=== PATIENT | female | born 1965 | race Caucasian/White ===

== ENCOUNTER 2016-06-01 05:49 | Day surgery (SDC) | payer OTHER ==
[2016-05-28 09:27] LABS: HEMATOCRIT 35.6 % (36.0-48.0); HEMOGLOBIN 11.8 g/dL (12.0-16.0)
[2016-05-28 09:41] LABS: BUN (BLOOD UREA NITROGEN) 16 MG/DL (6-23); CALCIUM, SERUM 9.9 MG/DL (8.5-10.4); CHLORIDE, SERUM 108 MMOL/L (96-112); CO2 (CARBON DIOXIDE) 27 MMOL/L (24-34); CREATININE 0.61 MG/DL (0.55-1.02); GFR AFRICAN AMERICAN 122 ML/MIN (>=60); GFR NON AFRICAN AMERICAN 105 ML/MIN (>=60); GLUCOSE, SERUM 95 MG/DL (60-99); POTASSIUM, SERUM 4.5 MMOL/L (3.5-5.3); SODIUM, SERUM 143 MMOL/L (135-148)
[2016-05-31 13:14] LABS: MEAN CORPUSCULAR HEMOGLOB 29.9 pg (26.0-34.0); MEAN CORPUSCULAR VOLUME 91.5 fL (80-100); RED CELL COUNT 4.01 10/6/uL (4.0-5.6); WHITE BLOOD CELLS 4.4 10/3/uL (4.5-10.5)
[2016-05-31 13:15] LABS: BASOPHILS 0.7 %; BASOPHILS ABSOLUTE 0.03 10/3/uL (0.0-0.16); EOSINOPHILS 3.2 %; EOSINOPHILS ABSOLUTE 0.14 10/3/uL (0.0-0.53); IMMATURE GRANULOCYTES 1.1 %; IMMATURE GRANULOCYTES ABSOLUTE 0.05 10/3/uL (0.0-0.11); LYMPHOCYTES 42.3 %; LYMPHOCYTES ABSOLUTE 1.85 10/3/uL (0.67-4.30); MANUAL DIFF NO %; MEAN CORPUS HGB CONC 32.7 g/dL (32.0-36.0); MEAN PLATELET VOLUME 10.8 fL (9.2-13.0); MONOCYTES 8.7 %; MONOCYTES ABSOLUTE 0.38 10/3/uL (0.21-1.20); NEUTROPHILS ABSOLUTE 1.92 10/3/uL (2.02-8.40); PLATELET COUNT 211 10/3/uL (150-400); RBC DISTRIBUTION WIDTH 13.3 % (12.0-16.0)
--- NOTE | ~2016-06-01 | OP ---
Record Of Operation [facility] [address] [place]. [address] NAME: DESIRE KHAN : 65 STATUS : REG [facility] [place] PAT#: [id number] AGE: 51 ADM/REG DATE : 06/01/16 MR#: [id number] REPORT SERV DATE: 06/01/16 DICTATED BY: JOSE A TRUJILLO DATE: 06/01/16 REPORT STATUS : Draft TRANSCRIBED BY: MODL DATE: 06/01/16 DATE OF PROCEDURE: 06/01/2016 PREOPERATIVE DIAGNOSIS: Left superior parathyroid adenoma with hyperparathyroidism. POSTOPERATIVE DIAGNOSIS: Left superior parathyroid adenoma with hyperparathyroidism. PROCEDURE: Neck exploration with removal of a left superior parathyroid adenoma. SURGEON: Jose A Trujillo M.D. VICE ADMIRAL: Dr. Gtz. ANESTHESIA: General endotracheal. ESTIMATED BLOOD LOSS: 10 mL. INTRAOPERATIVE FLUIDS: 800 mL crystalloid. INTRAOPERATIVE FINDINGS: Large superior parathyroid adenoma, measuring approximately 15 mm in diameter. OPERATIVE PROCEDURE: The patient was identified in the holding room, and transported to the operating room. In the operating room, the patient was placed on the operating room table in the supine position. Following induction of anesthesia, the patient was intubated without difficulty. The patient was intubated with an endotracheal tube to accommodate the NIM-2 stimulator. A proposed incision was diagrammed in a lower neck skin crease in a horizontal fashion. This area was then injected with 1% lidocaine with 1:100,000 epinephrine. The patient was prepped and draped in a sterile fashion. An incision was created through the aforementioned area of the neck extending the incision into the subcutaneous tissues. The patient did have a large amount of subcutaneous fat. A fat pad was excised to assist in exposure. Superior and inferior flaps were developed in subcutaneous fashion for exposure. The strap muscles were in the midline and retracted laterally to expose the thyroid gland. With the findings on the patient's sestamibi scan, dissection was carried around the lateral aspect of the thyroid gland on the left side. Dissecting inferiorly, a nodule suspicious for a parathyroid tumor was identified. The nodule was removed and sent to Surgical Pathology for histologic evaluation. While awaiting the results of the frozen section, dissection continued for identification of a more definitive growth suggestive of a parathyroid adenoma. Working inferiorly, the recurrent laryngeal nerve was identified. The nerve was traced superiorly. At the point to which the nerve deviated medially to enter the laryngeal muscle, a nodule was identified superior and lateral to the nerve, which did appear consistent with a parathyroid adenoma. Dissection was carried around the periphery of this nodule. Hemostasis was achieved with the use of the bipolar cautery. The growth was removed, and sent to Surgical Pathology for histologic evaluation. Hemostasis was achieved with the use of the bipolar cautery. Stimulation of the recurrent laryngeal nerve resulted in excellent Record Of Operation [address] [address] NAME: DESIRE KHAN : 65 STATUS : REG [facility] [place] PAT#: [id number] AGE: 51 ADM/REG DATE : 06/01/16 MR#: [id number] REPORT SERV DATE: 06/01/16 DICTATED BY: JOSE A TRUJILLO DATE: 06/01/16 REPORT STATUS : Draft TRANSCRIBED BY: TRAY DATE: 06/01/16 contraction of the laryngeal musculature. The pathologist did confirm the presence of hypercellular parathyroid tissue, consistent with a parathyroid adenoma in a removed specimen, superiorly. The lower nodule was reported to be a lymph node. With these findings the operative procedure was terminated. Surgiflo was placed into the operative bed. The strap muscles were reapproximated in the midline with interrupted 3-0 Vicryl suture. Similar suture material was used to approximate the subcutaneous tissues. A running 5-0 Prolene suture was placed in a subcuticular fashion for skin closure. Steri- Strips were applied to the wound. 15 minutes after removal of the parathyroid tumor, an intraoperative PTH level was repeated. The patient remained under anesthesia, pending the results of the PTH. The preoperative PTH level was 107. The repeat PTH level following tumor removal was 22.6. With these findings, the patient was awakened from anesthesia, extubated in the operating room, and transported to the recovery room in good condition. The patient tolerated the procedure well. There were no apparent complications. Specimens included: 1. Possible parathyroid adenoma. 2. Left superior parathyroid adenoma. TANNER/TRAY Jose A Trujillo M.D. / [id number] CC: Renny Morales M.D.
[~2016-06-01 05:49] MED LIST: CYMBALTA PO; DICLOFENAC PO; NEUR100 PO; PRIN20 PO; PROTONIX PO; SYN075 PO
[2016-06-01 08:56] LABS: PTH (INTRAOPERATIVE) 100.7 PG/ML (10.0-65.0); PTH TAT 0 Hrs 01 Mins
[2016-06-01 09:26] LABS: PTH (INTRAOPERATIVE) 22.6 PG/ML (10.0-65.0); PTH TAT 0 Hrs 19 Mins
== END 2016-06-01 18:32 | disposition home or self-care (01) ==
LOC: SDC 05:49
PROVIDERS: Otolaryngology
PROC: 0WJ60ZZ Inspection of Neck, Open Approach (ICD-10-PCS; 2016-06-01)
PROC: 0GBM0ZZ Excision of Left Superior Parathyroid Gland, Open Approach (ICD-10-PCS; principal; 2016-06-01 07:15)
DX: D35.1 Benign neoplasm of parathyroid gland (principal); E21.2 Other hyperparathyroidism; E03.9 Hypothyroidism, unspecified; I10 Essential (primary) hypertension; N39.41 Urge incontinence; M19.90 Unspecified osteoarthritis, unspecified site; M79.7 Fibromyalgia; L71.9 Rosacea, unspecified; K21.9 Gastro-esophageal reflux disease without esophagitis; F32.9 Major depressive disorder, single episode, unspecified; F41.9 Anxiety disorder, unspecified; Z88.5 Allergy status to narcotic agent; Z79.1 Long term (current) use of non-steroidal anti-inflammatories (NSAID); Z79.899 Other long term (current) drug therapy; Z90.710 Acquired absence of both cervix and uterus; Z98.890 Other specified postprocedural states
CPT/HCPCS: 71010; 80048; 83970; 85014; 85018; 85025; 88305; 88313; 88331; 93005; J0690; J0694; J2250; J2405; J2710; J3010